=== PATIENT | female | born 1945 | race Caucasian/White ===

== ENCOUNTER 2022-05-17 10:42 | Day surgery (SDC) | payer OTHER, MEDICARE ==
[2022-05-14 14:25] VITALS: BMI 28.3
[2022-05-17 11:13] VITALS: RESP 18
[2022-05-17 13:06] VITALS: TEMP 98
[2022-05-17 13:08] VITALS: BP 143/74; PULSE 73
== END 2022-05-17 13:30 | disposition home or self-care (01) ==
LOC: FASU-ENDO 10:42
PROVIDERS: ATTEND Internal Medicine Gastroenterology
PROC: 0DB98ZX Excision of Duodenum, Via Natural or Artificial Opening Endoscopic, Diagnostic (ICD-10-PCS; 2022-05-17)
PROC: 0DB68ZX Excision of Stomach, Via Natural or Artificial Opening Endoscopic, Diagnostic (ICD-10-PCS; 2022-05-17)
PROC: 0DBL8ZX Excision of Transverse Colon, Via Natural or Artificial Opening Endoscopic, Diagnostic (ICD-10-PCS; principal; 2022-05-17 12:06)
DX: D12.3 Benign neoplasm of transverse colon (principal); K29.50 Unspecified chronic gastritis without bleeding; K57.30 Diverticulosis of large intestine without perforation or abscess without bleeding; D50.9 Iron deficiency anemia, unspecified
CPT/HCPCS: 88305-TC; 88342-TC

== ENCOUNTER 2022-08-13 05:46 | Day surgery (SDC) | payer OTHER, MEDICARE ==
[2022-08-12 14:15] VITALS: BMI 27.3
[2022-08-13 08:11] LABS: HEMATOCRIT 32.2 % (32.4-45.2); HEMOGLOBIN 10.6 GM/dL (10.7-15.3); MCH 30.3 pg (25.7-33.7); MEAN CELL VOLUME 91.9 fl (80-96); MEAN PLT VOLUME 7.9 fl (7.5-11.1); PLATELET COUNT 383 10^3/uL (134-434); RBC 3.51 M/mm3 (3.60-5.2); RDW 13.3 % (11.6-15.6); WHITE BLOOD COUNT 4.4 K/mm3 (4.0-10.0)
[2022-08-13 08:15] LABS: INR 1.09 (0.83-1.09); PROTHROMBIN TIME (PATIENT) 12.6 SEC (9.7-13.0)
[2022-08-13 12:20] VITALS: RESP 20
[2022-08-13 13:47] VITALS: TEMP 98
[2022-08-13 13:49] VITALS: BP 128/66; PULSE 78
[2022-08-13 13:53] LABS: BF WBC & OTHER NUCLEATED CELLS 2339 /mm3; BODY FLUID MACROPHAGES 40 %
[2022-08-16 13:08] LABS: BODY FLUID ALBUMIN 3.6 g/dL (Not Estab.)
== END 2022-08-13 13:00 | disposition home or self-care (01) ==
LOC: JRADIR 05:46
PROVIDERS: ATTEND Internal Medicine
PROC: 0W993ZX Drainage of Right Pleural Cavity, Percutaneous Approach, Diagnostic (ICD-10-PCS; principal; 2022-08-13)
DX: J90 Pleural effusion, not elsewhere classified (principal)
CPT/HCPCS: 32555; 36415; 71045-TC-FY; 76942; 82042; 82150; 82465; 82945; 83615; 83986; 84157; 84478; 85027; 85610; 87070; 87075; 87102; 87116; 87205; 87206; 87210; 88108; 88305-TC